=== PATIENT | male | born 1930 | race Caucasian/White ===

== ENCOUNTER 2016-12-09 17:58 | Observation (INO) | payer OTHER, MEDICARE ==
[~2016-12-09] VITALS: Ht 167.6 cm; Wt 64.6 kg
[~2016-12-09 17:58] MED LIST: ADVIL200 MG PO; ALBUTEROL SULF8.5 GM IH; AMARYL1 MG PO; ASPIR-LOW81 MG PO; ASPIRIN81 M2 PO; Amaryl PO; CALCIUM 500 MG1 EACH PO; CELEBREX200 MG PO; COLACE100 MG PO; CYMBALTA30 MG PO; Colace PO; DIABETA,MICRONAS5 MG PO; DIABETA2.5 MG PO; DOCUSATE SODIU100 MG PO; DOK PLUS TABLE1 EACH PO; DULCOLAX5 MG PO; Diabeta,Micronase PO; EX-LAX15 MG PO; FAMOTIDINE20 MG PO; FLONASE16 G1 BOTH NARES; Feosol PO; Flovent 110 mcg IH; GABAPENTIN300 MG PO; HYDROCODON-ACE1 EAC7 PO; LYRICA100 MG PO; LYRICA50 MG PO; MEDROL DOSEPAK4 MG PO; MIRALAX255 GM PO; NEURONTIN100 MG PO; NORCO 5-325 TA1 EACH PO; Nitrostat,NitroQuick SL; Oscal 500 w/Vitamin PO; PEPPERMINT; PERCOCET 5/31 TABLET PO; PREDNISONE20 MG PO; Proventil,Ventolin H IH; RESTORIL30 MG PO; SKELAXIN800 MG PO; TEMAZEPAM30 MG PO; TRAMADOL HCL50 MG PO; TRAZODONE HCL50 MG PO; Theragran PO; Tylenol Extra Streng PO; Tylenol Regular Stre PO; VENTOLIN HFA18 GM IH; VITAMIN B-1001 EAC1 PO; VITAMIN D1000 UNIT PO; VITAMIN D2000 UNIT PO; ZETIA10 MG PO; celeBREX PO
[2016-12-09 20:07] LABS: HEMATOCRIT 33.5 % (38.0-50.0); MCH 30.1 PG (29.0-34.0); MCHC 32.8 G/DL (30.0-36.0); MCV 91.5 FL (86-99); MEAN PLAT.VOLUME 9.7 uM^3 (9.0-12.4); PLATELET COUNT 170 K/uL (156-360); RBC DIS.WIDTH-CV 13.3 % (11.8-14.6); RBC DIS.WIDTH-SD 45.1 % (39-53); RED BLOOD COUNT 3.66 M/uL (4.00-5.50); WHITE BLOOD COUNT 5.7 K/uL (4.1-10.2)
[2016-12-09 20:27] LABS: CHLORIDE 112 mEq/L (99-109); POTASSIUM 3.9 mEq/L (3.7-5.4); SODIUM 145 mEq/L (136-147)
[2016-12-09 20:29] LABS: GLUCOSE 141 mg/dL (70-99)
[2016-12-09 20:30] LABS: ANION GAP 11 MEQ/L (2-14)
[2016-12-09 20:32] LABS: GFR ESTIMATE (CALCULATED) 30 mL/min/
[2016-12-09 20:33] LABS: UREA NITROGEN (BUN) 34 mg/dL (9-23)
[2016-12-09 20:41] LABS: TROP-I INTERPRETATION NEGATIVE; TROPONIN-I 0.02 ng/mL (0.0-0.30)
[2016-12-10 00:14] VITALS: BP 140/68
[2016-12-10 00:20] VITALS: BP 140/68
[2016-12-10 03:59] VITALS: BP 129/63
[2016-12-10 04:57] LABS: HEMATOCRIT 32.5 % (38.0-50.0); MCH 29.3 PG (29.0-34.0); MCHC 32.6 G/DL (30.0-36.0); MCV 89.8 FL (86-99); MEAN PLAT.VOLUME 10.2 uM^3 (9.0-12.4); PLATELET COUNT 154 K/uL (156-360); RBC DIS.WIDTH-CV 13.1 % (11.8-14.6); RBC DIS.WIDTH-SD 42.8 % (39-53); RED BLOOD COUNT 3.62 M/uL (4.00-5.50); WHITE BLOOD COUNT 5.6 K/uL (4.1-10.2)
[2016-12-10 05:20] LABS: TROP-I INTERPRETATION NEGATIVE; TROPONIN-I 0.02 ng/mL (0.0-0.30)
[2016-12-10 05:26] LABS: CHLORIDE 114 mEq/L (99-109); SODIUM 145 mEq/L (136-147)
[2016-12-10 05:28] LABS: GLUCOSE 106 mg/dL (70-99)
[2016-12-10 05:29] LABS: ANION GAP 10 MEQ/L (2-14)
[2016-12-10 05:32] LABS: GFR ESTIMATE (CALCULATED) 36 mL/min/
[2016-12-10 05:33] LABS: UREA NITROGEN (BUN) 31 mg/dL (9-23)
[2016-12-10 08:49] VITALS: BP 160/77
[2016-12-10 11:09] LABS: TROP-I INTERPRETATION NEGATIVE; TROPONIN-I 0.02 ng/mL (0.0-0.30)
[2016-12-10 11:26] VITALS: BP 154/69
[2016-12-10] MEDS ORDERED: LISINOPRIL10 MG PO (11:46)
[2016-12-10] MEDS ORDERED: CELEBREX200 MG PO (11:46)
[2016-12-10] MEDS ORDERED: ASPIR 8181 M1 PO (11:47)
== END 2016-12-10 12:35 | disposition home or self-care (01) ==
LOC: EME → EDBD 17:58 → EDOF 23:11 → 5WEST 23:58
PROVIDERS: Hospitalist; Nurse Practitioner Adult Health
DX: R07.9 Chest pain, unspecified (principal); R53.1 Weakness; E11.22 Type 2 diabetes mellitus with diabetic chronic kidney disease; I12.9 Hypertensive chronic kidney disease with stage 1 through stage 4 chronic kidney disease, or unspecified chronic kidney disease; E11.42 Type 2 diabetes mellitus with diabetic polyneuropathy; N18.3 Chronic kidney disease, stage 3 (moderate); D64.9 Anemia, unspecified; H54.8 Legal blindness, as defined in USA; G89.29 Other chronic pain; M54.9 Dorsalgia, unspecified; I45.10 Unspecified right bundle-branch block; Z85.038 Personal history of other malignant neoplasm of large intestine
CPT/HCPCS: 71020; 80048; 84484; 85027; 93005; 99281; 99285; G0378; J1650

== ENCOUNTER 2017-01-20 08:28 | Emergency (ER) | payer OTHER, MEDICARE ==
[~2017-01-20] VITALS: Ht 165.1 cm; Wt 65.9 kg
[~2017-01-20 08:28] MED LIST changes: +ASPIR 8181 M1 PO; +LISINOPRIL10 MG PO
[2017-01-20] MEDS ORDERED: TRAZODONE HCL50 MG PO (08:51)
[2017-01-20] MEDS ORDERED: TEMAZEPAM30 MG PO (08:51)
[2017-01-20] MEDS ORDERED: VENTOLIN HFA18 GM IH (08:52)
[2017-01-20 09:38] LABS: EOSINOPHIL (%) 2.4 % (0-5); EOSINOPHIL COUNT 0.1 K/uL (0-0.3); HEMATOCRIT 31.6 % (38.0-50.0); IMMATURE GRANULOCYTE (%) 0.2 % (0.0-0.7); INSTRUMENT ABS NEUTROPHIL CT 2.8 K/uL; MCH 29.4 PG (29.0-34.0); MCHC 32.3 G/DL (30.0-36.0); MCV 91.1 FL (86-99); MEAN PLAT.VOLUME 10.1 uM^3 (9.0-12.4); MONOCYTE (%) 6.5 % (3-12); MONOCYTE COUNT 0.3 K/uL (0-0.8); NEUTROPHIL (%) 67.8 % (45-76); NEUTROPHIL COUNT 2.8 K/uL (1.8-6.4); PLATELET COUNT 165 K/uL (156-360); RBC DIS.WIDTH-CV 13.5 % (11.8-14.6); RBC DIS.WIDTH-SD 45.5 % (39-53); RED BLOOD COUNT 3.47 M/uL (4.00-5.50); WHITE BLOOD COUNT 4.1 K/uL (4.1-10.2)
[2017-01-20 09:49] LABS: ADD MIUA? NO; BILIRUBIN NEGATIVE; BLOOD NEGATIVE; COLOR YELLOW ((YELLOW)); GLUCOSE (STRIP) NEGATIVE; KETONES NEGATIVE; LEUKOCYTES NEGATIVE; NITRITE NEGATIVE; PROTEIN (STRIP) NEGATIVE; SPECIFIC GRAVITY 1.012 (1.000-1.030); UCUL ADDED? NO; UROBILINOGEN 0.2 MG/DL (0.2-1.0)
[2017-01-20 09:52] LABS: CHLORIDE 112 mEq/L (99-109); POTASSIUM 4.9 mEq/L (3.7-5.4); SODIUM 140 mEq/L (136-147)
[2017-01-20 09:54] LABS: GLUCOSE 226 mg/dL (70-99)
[2017-01-20 09:55] LABS: ANION GAP 9 MEQ/L (2-14)
[2017-01-20 09:56] LABS: TOTAL BILIRUBIN 0.7 mg/dL (0.0-1.0)
[2017-01-20 09:57] LABS: ALKALINE PHOSPHATASE 32 IU/L (3-129)
[2017-01-20 09:58] LABS: GFR ESTIMATE (CALCULATED) 36 mL/min/
[2017-01-20 09:59] LABS: UREA NITROGEN (BUN) 22 mg/dL (9-23)
[2017-01-20 10:15] VITALS: BP 12/80
== END 2017-01-20 10:50 | disposition home or self-care (01) ==
LOC: EME 08:28
PROVIDERS: Physician Assistant
DX: E86.0 Dehydration (principal); R73.9 Hyperglycemia, unspecified; R10.2 Pelvic and perineal pain; E78.5 Hyperlipidemia, unspecified; Z87.891 Personal history of nicotine dependence; Z87.442 Personal history of urinary calculi
CPT/HCPCS: 80053; 81003; 85025; 99281; 99285; J7030

== ENCOUNTER 2017-11-05 16:33 | Emergency (ER) | payer OTHER, MEDICARE ==
[~2017-11-05] VITALS: Ht 167.6 cm; Wt 67.2 kg
[2017-11-05 17:45] LABS: HEMOGLOBIN 11.8 G/DL (12.5-16.6); MCH 30.6 PG (29.0-34.0); MCHC 33.7 G/DL (30.0-36.0); MCV 90.9 FL (86-99); PLATELET COUNT 184 K/uL (156-360); RBC DIS.WIDTH-CV 13.4 % (11.8-14.6); RBC DIS.WIDTH-SD 44.7 % (39-53); RED BLOOD COUNT 3.85 M/uL (4.00-5.50); WHITE BLOOD COUNT 7.1 K/uL (4.1-10.2)
[2017-11-05 18:11] LABS: ALBUMIN 4.1 g/dL (3.2-4.8); CHLORIDE 114 mEq/L (99-109); POTASSIUM 4.4 mEq/L (3.7-5.4); SODIUM 147 mEq/L (136-147)
[2017-11-05 18:14] LABS: GLUCOSE 108 mg/dL (70-99); TOTAL PROTEIN 6.5 g/dL (6.4-8.3)
[2017-11-05 18:16] LABS: TOTAL BILIRUBIN 0.6 mg/dL (0.0-1.0)
[2017-11-05 18:17] LABS: ALKALINE PHOSPHATASE 36 IU/L (3-129); GFR ESTIMATE (CALCULATED) 34 mL/min/ (58.99-99999)
[2017-11-05 18:19] LABS: AST (GOT) 74 IU/L (2-34); UREA NITROGEN (BUN) 34 mg/dL (9-23)
[2017-11-05 18:20] LABS: ALT (GPT) 19 IU/L (3-49)
[2017-11-05 18:21] LABS: APPEARANCE CLEAR ((CLEAR)); BILIRUBIN NEGATIVE; BLOOD NEGATIVE; COLOR YELLOW ((YELLOW)); GLUCOSE (STRIP) NEGATIVE; KETONES NEGATIVE; LEUKOCYTES NEGATIVE; NITRITE NEGATIVE; PROTEIN (STRIP) NEGATIVE; UCUL ADDED? NO
[2017-11-05 20:05] VITALS: BP 124/66
== END 2017-11-05 20:17 | disposition home or self-care (01) ==
LOC: EME 16:33
PROVIDERS: Emergency Medicine
DX: R53.1 Weakness (principal); N28.9 Disorder of kidney and ureter, unspecified; I49.3 Ventricular premature depolarization; I45.10 Unspecified right bundle-branch block; R94.31 Abnormal electrocardiogram [ECG] [EKG]; J45.909 Unspecified asthma, uncomplicated; E78.5 Hyperlipidemia, unspecified; F41.9 Anxiety disorder, unspecified; F32.9 Major depressive disorder, single episode, unspecified; Z87.891 Personal history of nicotine dependence; Z87.442 Personal history of urinary calculi; Z98.890 Other specified postprocedural states; Z98.1 Arthrodesis status; Z85.9 Personal history of malignant neoplasm, unspecified; Z88.8 Allergy status to other drugs, medicaments and biological substances
CPT/HCPCS: 71046; 80053; 81003; 85027; 93005; 99281; 99285; J7030

== ENCOUNTER 2017-12-11 11:12 | Emergency (ER) | payer OTHER, MEDICARE ==
[~2017-12-11] VITALS: Ht 165.1 cm; Wt 148.0 kg
[2017-12-11 11:21] VITALS: BP 126/67
== END 2017-12-11 11:42 | disposition left against medical advice (07) ==
LOC: EME 11:12
DX: R53.1 Weakness (principal); Z53.21 Procedure and treatment not carried out due to patient leaving prior to being seen by health care provider

== ENCOUNTER 2018-01-08 06:31 | Emergency (ER) | payer OTHER, MEDICARE ==
[~2018-01-08] VITALS: Ht 170.2 cm; Wt 64.4 kg
[2018-01-08 07:21] LABS: APPEARANCE CLEAR ((CLEAR)); BILIRUBIN NEGATIVE; BLOOD SMALL; COLOR YELLOW ((YELLOW)); GLUCOSE (STRIP) NEGATIVE; KETONES NEGATIVE; LEUKOCYTES NEGATIVE; NITRITE NEGATIVE; PROTEIN (STRIP) NEGATIVE; SPECIFIC GRAVITY 1.017 (1.000-1.030); UROBILINOGEN 0.2 MG/DL (0.2-1.0)
[2018-01-08 07:48] LABS: BACTERIA RARE /HPF; EPITHELIAL CELLS RARE /HPF; MUCUS TRACE /LPF; RED BLOOD CELLS 0-5 /HPF (0-5); UCUL ADDED? NO; WHITE BLOOD CELLS 0-5 /HPF (0-5)
[2018-01-08] MEDS ORDERED: COLACE100 MG PO (10:22)
[2018-01-08 10:41] VITALS: BP 156/103
== END 2018-01-08 11:11 | disposition home or self-care (01) ==
LOC: EME 06:31
PROVIDERS: Emergency Medicine
PROC: 0T9B70Z Drainage of Bladder with Drainage Device, Via Natural or Artificial Opening (ICD-10-PCS; principal; 2018-01-08)
DX: R33.9 Retention of urine, unspecified (principal); K59.00 Constipation, unspecified; J45.909 Unspecified asthma, uncomplicated; E78.5 Hyperlipidemia, unspecified; F41.9 Anxiety disorder, unspecified; F32.9 Major depressive disorder, single episode, unspecified; Z87.442 Personal history of urinary calculi; Z87.891 Personal history of nicotine dependence; Z98.1 Arthrodesis status; Z88.8 Allergy status to other drugs, medicaments and biological substances
CPT/HCPCS: 81003; 99281; 99284